=== PATIENT | male | born 1960 ===

== ENCOUNTER 2022-11-27 06:00 | Day surgery (SDC) | payer OTHER ==
[~2022-11-27] VITALS: Ht 182.9 cm; Wt 86.2 kg
== END 2022-11-27 11:00 | disposition home or self-care (01) ==
LOC: CIR.AMB 06:00
PROVIDERS: ATTEND Orthopaedic Surgery
DX: M75.121 Complete rotator cuff tear or rupture of right shoulder, not specified as traumatic (principal); S46.211A Strain of muscle, fascia and tendon of other parts of biceps, right arm, initial encounter; Z20.822 Contact with and (suspected) exposure to COVID-19

== ENCOUNTER 2024-11-09 14:29 | Outpatient (CLI) | payer OTHER | END 2024-11-09 14:33 | disposition home or self-care (01) | LOC: RAD 14:29 | PROVIDERS: ATTEND Orthopaedic Surgery | DX: M17.0 Bilateral primary osteoarthritis of knee (principal) ==

== ENCOUNTER 2025-01-11 11:16 | Outpatient (CLI) | payer OTHER | END 2025-01-11 11:17 | disposition home or self-care (01) | LOC: NUCLEAR 11:16 | PROVIDERS: ATTEND Orthopaedic Surgery | DX: I73.89 Other specified peripheral vascular diseases (principal) ==

== ENCOUNTER → 2025-01-27 10:04 | Outpatient (CLI) | payer OTHER | END | disposition home or self-care (01) | LOC: LAB 10:04 | PROVIDERS: ATTEND Orthopaedic Surgery | DX: E55.9 Vitamin D deficiency, unspecified (principal); M85.9 Disorder of bone density and structure, unspecified; E56.1 Deficiency of vitamin K ==